=== PATIENT | female | born 1985 | race Two or more races ===

== ENCOUNTER 2022-06-19 08:53 | Emergency (ER) | payer SELFPAY ==
[~2022-06-19] VITALS: Ht 167.6 cm; Wt 91.0 kg
[2022-06-19 09:10] VITALS: BP 127/87
== END 2022-06-19 09:42 | disposition left against medical advice (07) ==
LOC: ER 08:53
DX: Z53.21 Procedure and treatment not carried out due to patient leaving prior to being seen by health care provider (principal)
CPT/HCPCS: 82962; 99281